=== PATIENT | female | born 2000 | race Caucasian/White ===

== ENCOUNTER 2023-07-12 11:51 | Emergency (ER) | payer MEDICAID ==
[~2023-07-12] VITALS: Ht 160 cm; Wt 95.0 kg
[2023-07-12 12:00] VITALS: TEMP 98.9; O2SAT 100
[2023-07-12] MEDS ORDERED: KETOROLAC 60MG/2ML VIAL IM ONE (12:15)
[2023-07-12] MEDS ORDERED: ONDANSETRON HCL 4MG TABLET PO ONE (12:15)
[2023-07-12 12:26] LABS: BASOPHILS % 0.4 % (0.0-2.0); EOSINOPHILS % 1.2 % (0.0-5.0); HEMATOCRIT. 40.3 % (36.0-48.0); HEMOGLOBIN. 13.5 g/dL (12.0-16.0); LYMPHOCYTES % 41.4 % (20.0-50.0); MEAN CORPUSCULAR HEMOGLOBIN 32.7 pg (28.0-32.0); MEAN CORPUSCULAR HGB CONC 33.6 g/dL (31.0-37.0); MEAN CORPUSCULAR VOLUME 97.4 fL (81.0-99.0); MONOCYTES % 8.8 % (2.0-8.0); NEUTROPHILS % 48.2 % (40.0-76.0); PLATELET 380 x1000/uL (130-400); RED BLOOD CELL COUNT 4.13 mill/uL (4.2-5.4); RED CELL DISTRIBUTION WIDTH 13.7 % (11.6-14.6); WHITE BLOOD COUNT 5.4 x1000/uL (4.5-11.0)
[2023-07-12 12:44] LABS: ALANINE AMINOTRANSFERASE 16 IU/L (10-49); ALBUMIN 4.3 g/dL (3.2-4.8); ASPARTATE AMINOTRANSFERASE 21 IU/L (<34); BILIRUBIN TOTAL 0.5 mg/dL (0.1-1.0); CARBON DIOXIDE 26 mEq/L (21-32); CHLORIDE 108 mEq/L (98-107); CREATININE 0.7 mg/dL (0.6-1.0); GLUCOSE 105 mg/dL (70-105); POTASSIUM 4.6 mEq/L (3.5-5.1); PROTEIN TOTAL 6.4 g/dL (6.0-8.3); SODIUM 140 mEq/L (136-145); UREA NITROGEN BLOOD 7 mg/dL (9-23)
[2023-07-12] MEDS ORDERED: OXYCODONE HCL/ACETAMINOPHEN 5/325MG TABLET PO ONE (15:00)
[2023-07-12] MEDS ORDERED: MORPHINE SULFATE 2 MG/ML CPJ (NOT FOR IM USE) IV ONE (15:45)
[2023-07-12 16:23] LABS: CLARITY URINE CLOUDY (CLEAR); COLOR URINE YELLOW (YELLOW); GLUCOSE URINE NEGATIVE (NEGATIVE); KETONES URINE NEGATIVE (NEGATIVE); LEUKOCYTE ESTERASE URINE NEGATIVE (NEGATIVE); NITRITE URINE NEGATIVE (NEGATIVE); OCCULT BLOOD URINE 3+ (NEGATIVE); PROTEIN URINE TRACE (NEGATIVE); SPECIFIC GRAVITY URINE 1.029 (1.005-1.030); UROBILINOGEN URINE 0.2 E.U./dL (0.2-1.0)
[2023-07-12 16:26] LABS: RBC URINE 15-25 /hpf (0-2); YEAST URINE NONE SEEN
[2023-07-12 16:30] VITALS: BP 146/95; PULSE 87; RESP 16
[2023-07-12 16:51] LABS: BACTERIA URINE 2+; SQUAMOUS EPITHELIAL CELL URINE 1+ /lpf (RARE/1+); WBC URINE 0-2 /hpf (0-2)
== END 2023-07-12 17:34 | disposition left against medical advice (07) ==
LOC: ER 11:51
DX: R10.2 Pelvic and perineal pain (principal); Z88.8 Allergy status to other drugs, medicaments and biological substances
CPT/HCPCS: 99284; 96374; 80053; 81003; 81025; 83690; 85025; 36415; 96372; Q0162; J1885; J2270